=== PATIENT | female | born 1955 | race Caucasian/White ===

== ENCOUNTER → 2018-05-09 17:58 | Outpatient (REF) | payer OTHER, SELFPAY ==
[2018-05-09 20:14] LABS: Cholesterol 206 mg/dL (140-199); HDL Cholesterol 35 mg/dL (40-60); LDL Cholesterol Calculated 105 mg/dL (<100); Triglycerides 328 mg/dL (35-150)
== END ==
LOC: LAB 17:58
PROVIDERS: PCP Family Medicine; Visit Provider Physician Assistant Medical
DX: E78.5 Hyperlipidemia, unspecified (principal)
CPT/HCPCS: 36415; 80061

== ENCOUNTER → 2020-07-09 11:31 | Outpatient (CLI) | payer OTHER, SELFPAY ==
--- NOTE | 2020-07-09 11:36 | DI.CT.S_ITS ---
PROCEDURE: CT UE LT WO CON INDICATIONS: Primary osteoarthritis, left shoulder pain TECHNIQUE: Noncontrast 1-1.5 mm thick sections acquired from the acromioclavicular joint to the inferior scapula, with coronal and sagittal reformatting. COMPARISON: None. FINDINGS: Image quality: Excellent. Bones: No acute fracture identified. Severe glenohumeral degenerative joint disease with near [id number] appearance, subchondral sclerosis and spurring. Presumed small loose body seen adjacent to the coracoid process and image 129/5. Degenerative cystic changes seen at the anterior and posterior aspect of the greater tuberosity. There is a small joint effusion. Soft tissues: Muscles unremarkable. Visualized left lung unremarkable. High-riding appearance of the humeral head suggestive of chronic rotator cuff pathology. Posterior subluxation of the humeral head relative the glenoid suggestive of longstanding posterior labral tear. IMPRESSION: Severe degenerative joint disease as above. Subcentimeter loose body seen in the subscapular recess Dictated by: Basil Winter M.D. on 07/09/2020 at 12:47 Approved by: Basil Winter M.D. on 07/09/2020 at 12:51
== END ==
PROVIDERS: PCP Physician Assistant Medical; Referring Provider Orthopaedic Surgery; Visit Provider Orthopaedic Surgery
DX: M19.012 Primary osteoarthritis, left shoulder (principal); M24.012 Loose body in left shoulder
CPT/HCPCS: 73200

== ENCOUNTER → 2020-09-14 13:12 | Outpatient (CLI) | payer OTHER, SELFPAY ==
[2020-09-14 13:38] LABS: COVID19 -Nasal RAPID Negative (Negative)
== END ==
PROVIDERS: PCP Physician Assistant Medical; Visit Provider Physician Assistant
DX: Z01.812 Encounter for preprocedural laboratory examination (principal)
CPT/HCPCS: 87635

== ENCOUNTER 2020-09-15 06:33 | Day surgery (SDC) | payer OTHER, SELFPAY ==
[2020-09-09 13:58] VITALS: BMI 29.9
[2020-09-15] VITALS (15 sets, daily range): BP systolic 100–128; BP diastolic 48–86; PULSE 74–91; RESP 10–18; TEMP 36.1–36.6; O2SAT 92–99; BMI 29.9
--- NOTE | 2020-09-15 06:00 | DI.RAD.S_ITS ---
PROCEDURE: XR SHOULDER LT 1V INDICATIONS: post op total shoulder TECHNIQUE: 1 views of the shoulder were acquired. COMPARISON: [facility], CR, XR SHOULDER 2+ VIEWS LEFT, 08/28/2019, 10:10. FINDINGS: Bones: Status post left shoulder arthroplasty. No fractures or dislocations. No suspicious bony lesions. Visualized ribs appear intact. Soft tissues: No suspicious soft tissue calcifications. IMPRESSION: Expected postsurgical change for left shoulder arthroplasty. Dictated by: Lidia Blevins MD, PhD on 09/15/2020 at 13:51 Approved by: Lidia Blevins MD, PhD on 09/15/2020 at 13:52
[2020-09-15] MEDS: ACETAMINOPHEN 325 MG TABLET 975 MG PO (07:10)
[2020-09-15] MEDS: PREGABALIN 75 MG CAPSULE PO (07:10)
[2020-09-15] MEDS: CELECOXIB 200 MG CAPSULE PO (07:10)
[2020-09-15] MEDS: LACTATED RINGERS 1,000 ML 42 ML IV (07:20)
--- NOTE | 2020-09-15 07:28 | PM.PREOP ---
Pre-operative Note COVID-19 COVID-19 status: Negative Result date/Date tested (Pos, Neg/Pending): 09/14/20 Interval Note History & Physical reviewed/Exam performed by Physician: Yes Changes to H&P: No
[2020-09-15] MEDS: MIDAZOLAM 2 MG/2 ML VIAL IV (07:35)
--- NOTE | 2020-09-15 07:50 | PM.OP.1 ---
Operative Date/Time/Diagnoses Date of procedure: 09/15/20 Time of procedure: 09:55 Pre-op diagnosis: Left shoulder osteoarthritis Post-op diagnosis: same Procedure & Clinicians Procedure: left total shoulder replacement Same procedure as scheduled: Yes Indications: The patient has had progressively worsening left shoulder pain with radiographic changes consistent with arthritis. Non-operative management has failed and the patient has requested total shoulder replacement. The risks, benefits and alternatives to surgery were discussed with the patient prior to proceeding. Risks discussed included, but were not limited to, failure to relieve pain, stiffness, infection, nerve damage, deep venous thrombosis, pulmonary embolism, stroke, coma, heart attack, permanent paralysis and , as well as the potential need for eventual revision of the prosthetic. Surgeon: Steven Dempsey Putty And Patch Worker: Carlos Joe Click Yes if Unassisted: No Anesthesia Type: General, Peripheral nerve block and Local Operative Notes Findings: Significant osteoarthritis with large inferior humeral osteophyte and moderate biconcave glenoid Closure Type: primary Specimen(s): none sent Prosthetic devices, grafts, tissues, transplants, or devices: Implants used in this procedure were manufactured by the [employer] and included a 50 mm all polyethylene E-plus pegged glenoid, a size 2 canal sparing stem, and a 50 X 18 mm humeral head and neck. The subscapularis was repaired with the [employer] SpeedBridge system. Applied: implant(s) Estimated Blood Loss (mL): 100 Blood products transfused: none Procedure in detail: The patient was seen in the pre-operative area, where the patient identified the left shoulder as the operative site and this was marked with my initials. The patient received pre-operative antibiotics, underwent an interscalene block, and was taken to the operating room and placed on the operative table in the supine position. After satisfactory anesthesia, a manager maritime out was performed. The patient was repositioned in the beach chair position using a dedicated positioner. All pressure points were well padded, and the knees were slightly bent to prevent tension on the sciatic nerves. The left arm was prepared from the fingers to the base of the neck with ChloroPrep in the usual fashion and draped through sterile drapes. An approximately 15 cm incision was created, starting at the clavicle above the coracoid process and extended towards the deltoid insertion. The deltopectoral interval was used to access the shoulder. The cephalic vein was taken laterally. A self retaining retractor was placed. The upper centimeter of the pectoralis major tendon was released. The three sisters were identified and cauterized. The axillary nerve was palpated and protected throughout the case. The biceps was released from its groove and tenodesed over the top of the pectoralis major tendon. The subscapularis was released from the lesser tuberosity with a subscapularis peel and tagged for later repair. The shoulder was dislocated and a cutting guide was used for the proximal humeral osteotomy in 30 degrees of retroversion. The osteophytes were removed to allow centering of the humeral head. The guide pin was drilled with care not to ?plunge? laterally. The central Reamer was used and the trial canal sparing stem was placed using a size 2 which appeared to be the appropriate size. A proximal humeral protector was then applied. We then removed the self-retaining retractor and placed retractors to access the glenoid. The subscapularis was released with a 360 degree release with care being taken to protect the axillary nerve with the inferior portion of this procedure. The remnant of labrum and biceps stump were removed. The appropriate size reamer was chosen with the glenoid sizer, and the guide pin placed. The glenoid was appropriately reamed. The guide for the peripheral holes was used and the center hole enlarged. The trial glenoid was placed with good stability. We then cemented the final implant into place after irrigating the peg holes and drying them with thrombin-soaked Gelfoam. We returned our attention to the humerus, a trial humeral head was applied and a trial reduction performed. Stability was checked with 50% posterior translation with spontaneous reduction, external rotation at the side to 50? with the subscapularis in the repaired position and internal rotation in abduction to 70?. This was felt to be satisfactory and the appropriate implants were opened. The humeral stem prosthetic was impacted into the humerus. The humeral head was applied when the stem was still slightly proud and impacted to both seat the head and fully seat the stem. The joint was relocated one final time. The joint was irrigated and the subscapularis repaired using a double row speed bridge technique. The top of the subscapularis was closed to the leading edge of the supraspinatus with a figure of 8 #2 TiCron to close the rotator interval. The deltopectoral interval was closed with interrupted 0 Vicryl. The subcutaneous layer was closed with 3-0 Vicryl, and the skin with a running 3-0 V-Lock suture and SteriStrips. An Aquacel Ag dressing was applied, the patient's arm was placed in a sling, and the patient was taken to recovery having tolerated the procedure well. Complications: none Post-operative Condition: stable Disposition: PACU Plan for aftercare: The patient will be maintained on a standard total shoulder replacement protocol with passive range of motion limited to 90 degrees forward flexion, 0 degrees external rotation at the side, 0 degrees abduction and internal rotation to the body. The patient will receive aspirin and sequential compression devices for DVT prophylaxis. The patient will be discharged home when safe for the home environment, likely tomorrow.
--- NOTE | 2020-09-15 07:52 | SUR.PREOP ---
0730: Verbal order Dr Freedman for pre-procedure sedation.
--- NOTE | 2020-09-15 07:53 | SUR.PREOP ---
Block start time 0738 . Monitoring initiated and maintained throughout procedure. Oxygen at 2L via nasal cannula and 2mg Versed given by this Rn per anesthesiologist instructions, see EMR. Patient remained stable throughout procedure, no adverse reactions noted. Block end time [0746].
[2020-09-15] MEDS: CEFAZOLIN 1 GM VIAL 2 GM IV (08:04)
--- NOTE | 2020-09-15 08:31 | SUR.OPER ---
Beach chair with Jojo/Amilcar shoulder positioner. Lower body on padded OR bed. Head in foam padded head cradle, secured with straps. Non-operative arm secured <90 degrees abduction. Pillow under knees. Safety belt at thigh. Cloth tape over blanket over lower legs.
[2020-09-15] MEDS: THROMBIN (RECOMBINANT) 5,000 UNIT VIAL 5000 UNIT TOP (08:41)
[2020-09-15] MEDS: TRANEXAMIC ACID 1,000 MG VIAL 1000 MG INJ ×2 (08:41→09:39)
--- NOTE | 2020-09-15 08:55 | P.PCN_ITS ---
Procedures Date/Time Date of procedure: 09/15/20 Time of procedure: 07:40 Nerve Block Time out performed: Yes Local anesthetic used: other (15mL 0.5opivacaine, 5mL 2* idocaine) Location of anesthetic used: interscalene Amount of anesthesia used (mL): 20 Nerve blocks: brachial plexus (interscalene) Procedure successful: Yes Patient tolerated procedure: well Complications: none Additional comments: Brachial plexus nerve block for post operative pain management. Risks and benefits discussed, including bleeding, infection, intravascular injection, nerve damage, block failure. Standard ASA monitors, NC O2. Pt supine. Chloroprep site preparation, sterile technique. Brachial plexus identified with US guidance, traced from supraclavicular to interscalene. 1mL 2% lidocaine skin wheal. 22g x 50mm Pajunk advanced with in-plane US guidance to brachial plexus. Negative aspiration. LA injected with intermittent negative aspiration. Good LA spread noted on US. No pain, no paraesthesia. Pt tolerated procedure well. Vital signs stable.
[2020-09-15] MEDS: OXYCODONE IR 5 MG TABLET PO (10:07)
--- NOTE | 2020-09-15 10:24 | PC.NURSE ---
Day shift: Pt on AC unit at approx 1030 from PACU. She is A&Ox4. Reports left shoulder pain of 6/10. She did get pain med in PACU. Oriented to room and call light. CMS WNL and radial pulse present. Can move left and and automotive sales representative strength present. Agrees to not get OOB w/o help from staff. Bed alarm on. Tolerating ice water. Encouraged to eat and drink slowly today. VS WNL. RA 93%. Instructed on I.S. use. Will continue with post-op plan of care.
[2020-09-15] MEDS: LACTATED RINGERS 1,000 ML 100 ML IV (11:18)
[2020-09-15] MEDS: IBUPROFEN 400 MG TABLET PO ×3 (12:16→22:04)
[2020-09-15] MEDS: NICOTINE 2 MG 1 EACH PO ×5 (13:13→22:06)
[2020-09-15] MEDS: OXYCODONE IR 10 MG TABLET PO ×3 (13:33→22:03)
--- NOTE | 2020-09-15 13:44 | PC.NURSE ---
Day shift: Pt OOB x2 to void. Ambulating well and steady on feet. 2nd time to the BR increased shoulder pain reported. Medicated per MAY. Pt had no nausea after lunch. Dressing remains CDI and arm in sling. IV fluids per MAY. SCD's tolerated and using I.S. as directed. Pt wants to take a nap now. Door closed. Bed alarm is on for safety. Call light in reach.
--- NOTE | 2020-09-15 14:48 | PC.NURSE ---
Day shift: Pt awake now (1450) and did not want the 1500 dose of Tylenol. OOB and ambulating w/ PT. Pain well controlled per MAY.
--- NOTE | 2020-09-15 15:08 | PT.IIE ---
Current Diagnoses Primary osteoarthritis, left shoulder (09/15/20) Surgery Performed Operation Date: 09/15/20 07:45 Actual Procedures p Total Shoulder Arthroplasty(Left) - Steven Dempsey MD Medical History (Last Updated 09/09/20 @ 14:15 by Ginger Mendez RN) Current every day smoker Easy bruisability Frequent UTI History of prosthetic unicompartmental arthroplasty of left knee Hyperlipidemia Osteoarthritis Physical Therapy Inpatient Evaluation/Re-Eval M1 PT/OT-IP Prior Functional Status Start: 09/15/20 16:57 Freq: NEEDED Status: Active Protocol: Document 09/15/20 15:08 DLM (Rec: 09/15/20 17:09 DL [id number]) Medical Review Prior Functional Status Medical History Reviewed Yes Diet/Fluid Consistency Regular Communication WNL Mobility and Gait Independent without device, active Activities of Daily Living and IADL's Independent Social History Household Members friend(s),none Living Arrangements Mobile home Number of Floors (Floors) One Floor Number of Stairs To Enter/Railing? 3 without rail, has another way into house without steps Home Environment Tub/Shower M2 PT-IP Current Condition Start: 09/15/20 16:57 Freq: NEEDED Status: Active Protocol: Document 09/15/20 15:08 DLM (Rec: 09/15/20 17:09 DL [id number]) Physical Therapy Current Condition Current Condition Evaluation Date 09/15/20 Treatment Diagnosis left total shoulder arthroplasty, mobility impairment Onset Date 09/15/20 Precautions Shoulder Precautions Sling,PROM,Internal Rotation to Body,No External Rotation, No Abduction,Forward Flexion to 90 degrees Other Precautions sling in place left shoulder, NWB left UE Weight Bearing Status Weight Bearing Status Non-Weight Bearing M3 PT-IP Subjective Start: 09/15/20 16:57 Freq: NEEDED Status: Active Protocol: Document 09/15/20 15:08 DLM (Rec: 09/15/20 17:09 DL [id number]) Subjective Physical Therapy Visit Type Type Initial Evaluation Visit Start Time 14:30 Visit Stop Time 15:08 Total Visit Minutes 38 Number of CUSTOM CAR BUILDER Visits 0 Physical Therapy Visit Comments Patient Comments Her arm is numb with some tingling in her hand, no pain Patient Goals Discharge home Therapy Pain Assessment Pain When Pain Assessed After Treatment Pain Present Pain Present Denied Pain M4 PT-IP Mobility and Gait Start: 09/15/20 16:57 Freq: NEEDED Status: Active Protocol: Document 09/15/20 15:08 DL (Rec: 09/15/20 17:09 [facility] [id number]) PT-Bed Mobility Assessment Rolling Type of Rolling Roll to Right Level of Assist Independent Supine to Sit Supine to Sit Standby Assistance Sit to Supine Sit to Supine Standby Assistance Scooting Scooting to Edge of Bed Independent PT-Transfer Assessment Sit to and From Stand Sit to and from Stand Standby Assistance,Use of Upper Extremities Equipment Transfer Assistive Device Gait Belt Transfers Transfer Destination Chair Transfer Technique Stand Step Pivot Transfer Ability Level of Assist Standby Assistance,Contact Guard Assistance,Use of Upper Extremities Comments Mobility Comments Pt up to recliner this visit, needs close and pt instructed to have nursing help back to bed Gait Assessment Gait Gait Assistance Required: Contact Guard Assist Distance (Feet) 220 Able to Maintain Weight Bearing Status Yes During Gait Assistive Devices Assistive Device None,Gait Belt Gait Deviations General Gait Pattern Within Normal Limits Comments Gait Comments one lateral loss of balance to left when turning corner, needed assist to recover Stair Climbing Assessment Comments Stair Climbing Comments she plans to avoid stair at home since does not have rails to hold PT-Balance Assessment Sitting Balance and Reactions Static Sitting Balance Ability Good Dynamic Sitting Balance Ability Good Standing Balance and Reactions Static Standing Balance Ability Good Dynamic Standing Balance Ability Fair M5 PT-IP Objective Assessments Start: 09/15/20 16:57 Freq: NEEDED Status: Active Protocol: Document 09/15/20 15:08 DL (Rec: 09/15/20 17:09 [facility] [id number]) Orientation Orientation/Cognition Level of Alertness Alert Orientation Name,Age,Birthday,Month,Date, Year,Day of Week,Place, Situation Language Function Ability No Deficits Noted Safety Awareness Understands Safety Issues Memory Description No Deficits Noted Gross Range of Motion Upper Extremity ROM Assessment Left Impaired Impairments shoulder in sling post-op, elbow/wrist/hand moving well, post-op restrictions left shoulder motion Lower Extremity ROM Assessment Within Functional Limits Strength Upper Extremity Strength Assessment Left Impaired Shoulder no functional use post-op Elbow flexion 2+/5 Wrist moving actively Hand moving actively Lower Extremity Strength Assessment Within Functional Limits Coordination Assessment Gross Coordination Gross Coordination WNL Sensation Assessment Comments Sensation Comments pt had block that is still affecting left UE, mostly numb with some tingling in left hand Muscle Tone Muscle Tone WNL Yes M6 PT-IP Treatment Start: 09/15/20 16:57 Freq: NEEDED Status: Active Protocol: Document 09/15/20 15:08 DLM (Rec: 09/15/20 17:09 DL [id number]) Physical Therapy Treatment Education Education Provided Precautions,Post-Op Packet, Safety M7 PT-IP Assessment and Plan Start: 09/15/20 16:57 Freq: NEEDED Status: Active Protocol: Document 09/15/20 15:08 DLM (Rec: 09/15/20 17:09 DL [id number]) PT Summary Assessment and Plan Potential Rehabilitation Potential Excellent Status of Condition at Evaluation Evolving Summary Impairments Pain,ROM,Strength,Balance,Bed Mobility,Transfers,Gait, Activity Tolerance Assessment Summary Akilah is alert and resting in bed. She continues to have numbness in left UE post-op. Educated her in post-op restrictions and fall prevention. She tolerated gait in the cool well with one loss of balance to the left and needed assist for recovery . She is up to recliner. Ice on incisional area. She plans to discharge home with help from friends. Anticipate she will be ready for discharge home tomorrow if she continues to progress well. Goals Bed Mobility Goal Independent Transfer Goal Independent Gait Goal Independent Gait Distance 200 feet Days to Meet Goals 2 Frequency of Treatment Frequency Of Treatment Twice a Day Treatment Plan Physical Therapy Treatment Plan Bed Mobility Training,Transfer Training,Gait Training, Therapeutic Exercise,Balance Retraining,Post Op Education, Discharge Planning,Hot or Cold Pack Recommendations To Nursing Amount of Assist Needed Standby Assistance Discharge Recommendations PT Discharge Recommendations Home with Assistance, Outpatient PT Other Discharge Recommendations Her roommate and friend are going to be helping her, she has out-pt PT scheduled Transportation Needs at Discharge Private Vehicle
[2020-09-15] MEDS: FENOFIBRATE, MICRONIZED 67 MG CAPSULE 201 MG PO (20:12)
[2020-09-15] MEDS: ASPIRIN EC 81 MG TABLET PO (20:13)
[2020-09-15] MEDS: DOCUSATE 100 MG CAPSULE PO (20:14)
[2020-09-15] MEDS: ACETAMINOPHEN 325 MG TABLET 650 MG PO (20:14)
[2020-09-16] MEDS: OXYCODONE IR 10 MG TABLET PO ×3 (01:23→08:05)
[2020-09-16] MEDS: NICOTINE 2 MG 1 EACH PO (01:23)
[2020-09-16] MEDS: IBUPROFEN 400 MG TABLET PO ×3 (01:23→08:04)
[2020-09-16 03:00] VITALS: BP 140/83; PULSE 68; RESP 18; TEMP 36.2; O2SAT 93
[2020-09-16] MEDS: HYDROMORPHONE 2 MG TABLET PO (03:00)
[2020-09-16 06:04] LABS: Hematocrit 41.3 % (36-46); Hemoglobin 13.5 g/dL (12.0-16.0)
[2020-09-16 07:00] VITALS: BP 138/82; PULSE 67; RESP 16; TEMP 36.4; O2SAT 97
--- NOTE | 2020-09-16 07:26 | PM.DS.1 ---
History of Present Illness History of Present Illness Date Patient Seen: 09/16/20 Time Patient Seen: 07:26 Chief complaint: Left Total Shoulder Arthroplasty *OPB* Narrative: The history and physical is contained in the chart in a previously completed note. Please refer to that note for this information. Discharge Providers Provider Discharge Date: 09/16/20 Primary care physician: Rihna Shaw PA-C Consults: 09/15/20 10:37 Consult to Discharge Planning Routine Comment: Consult to Physical Therapy Evaluate & Treat Comment: Physician Instructions: pendulums, 90 FF, 0 Abd, 0 ER, IR to body Consult to Respiratory Therapy Evaluate & Treat Comment: Physician Instructions: Evaluate and treat Discharge provider: Steven Dempsey MD Summary Hospital Course Discharge Diagnosis: Left shoulder osteoarthritis Hospital Course: The patient was admitted to the hospital and taken directly to the operating room on September 15, 2020. She underwent a left total shoulder replacement with no complications. On postoperative day 1 she had mild discomfort but was ready for discharge home. Status at Discharge Cognitive/behavioral status at discharge: at baseline, oriented Functional status at discharge: independent ambulation Overall status at discharge: patient is progressing back to baseline Time Spent with Patient Time spent: Less than 30 minutes Exam Vital Signs (past 8 hours): - 09/16/20 03:00 Temperature 97.1 F L Pulse Rate 68 Respiratory Rate 18 Blood Pressure 140/83 Pulse Oximetry 93 Oxygen Delivery Method Room Air Oxygen Flow Rate 0 Narrative Exam Narrative: The left shoulder wound is dressed with minimal drainage on the bandage. Light touch is intact in the radial, ulnar, median, musculocutaneous and axillary nerve distribution. She can extend her thumb, abduct her thumb, abduct her fingers and can fire her biceps and deltoid. Objective Labs Result Diagrams: 09/16/20 05:46 Labs: Laboratory Results - last 24 hr 09/16/20 05:46 Hgb 13.5 Hct 41.3 PFSH Medical History (Updated 09/09/20 @ 14:15 by Ginger Mendez RN) Current every day smoker Easy bruisability Frequent UTI History of prosthetic unicompartmental arthroplasty of left knee Hyperlipidemia Osteoarthritis Surgical History (Updated 09/09/20 @ 14:20 by Ginger Mendez RN) History of esophagogastroduodenoscopy (EGD) History of prosthetic unicompartmental arthroplasty of right knee Social History household members: friend(s) and none Smoking Status: Current every day smoker alcohol intake: current Discharge Assessment & Plan Assessment and Plan Assessment: Stable postoperative day 1 status post left total shoulder replacement. Plan of Treatment: Discharge today with follow-up in 2 weeks in my office. Prescriptions for oxycodone and Vistaril have been provided. She has been instructed in the use of Tylenol and ibuprofen for pain relief. Continue aspirin twice a day for DVT prophylaxis. Discharge Plan Discharge Plan Patient Disposition: Home Discharge orders & Medications Discharge Orders: Discharge (Order); Ordered 09/16/20 Ordered By: Steven Dempsey Prescriptions: New acetaminophen 325 mg Tablet 650 mg PO TID 30 Days Qty: 180 RF: 0 ibuprofen 400 mg Tablet 400 mg PO Q4HR 30 Days RF: 0 hydroxyzine pamoate 25 mg Capsule 25 mg PO Q6HR PRN (Reason: Nausea) Qty: 30 RF: 0 oxycodone 5 mg Tablet 5 mg PO Q4H PRN (Reason: Pain, Moderate (4-6)) Qty: 40 RF: 0 Continued multivitamin Tablet 1 tab PO DAILY Qty: 0 RF: 0 omega-3 fatty acids 500 mg Capsule 500 mg PO BID Qty: 0 RF: 0 coQ10 (ubiquinol) 200 mg Capsule 200 mg PO DAILY Qty: 0 RF: 0 estradiol-norethindrone acet 0.5-0.1 mg tablet 1 tab PO DAILY Qty: 84 RF: 0 fenofibrate 160 mg Tablet 160 mg PO BEDTIME RF: 0 nicotine (polacrilex) 2 mg Lozenge 2 mg BUCCAL Q2-4H PRN (Reason: Smoking Cessation) RF: 0 fluticasone propionate 50 mcg/actuation [place],Suspension 1 spray INTRANASAL DAILY RF: 0 Discontinued hydrocodone-acetaminophen 5-325 mg Tablet 1 tab PO Q4-6H PRN (Reason: Pain) RF: 0 Follow up/Referrals: Rhina Shaw PA-C [Primary Care Provider] - Steven Dempsey MD [Physician] - 2 Weeks Diet/Activity/Treatments Diet: Diet as Tolerated and Regular Activity: You may use your left arm in front of your body below shoulder level. You may lift 1-2 lb with your left hand. Cold/Heat Therapy: You may apply ice to the left shoulder for 15 minutes every hour as needed for pain control. Skin/Wound/Dressing Care Report to your healthcare provider any signs of infection, such as:: chills, fever, night sweats, increased pain, unusual drainage and unusual redness Dressing: Leave the dressing in place until your follow-up. You may shower with the dressing in place. If the central strip of the dressing becomes saturated with either water or blood, please call the office to have it evaluated. Visit Report/Discharge Packet Instructions: DI for Shoulder Replacement Stand Alone Forms: Surgery Discharge Discharge Data Primary Care Provider: Rhina Shaw Attending Provider: Steven Dempsey
[2020-09-16] MEDS: DOCUSATE 100 MG CAPSULE PO (08:04)
[2020-09-16] MEDS: ASPIRIN EC 81 MG TABLET PO (08:05)
--- NOTE | 2020-09-16 09:27 | PC.NURSE ---
Day shift: Pt left unit via WC. Going home to [facility]. Her friend is driving her. Paperwork signed and all questions answered. scripts sent electronic to Pt's pharmacy. Pt has all personal belongings. Corinne remains CDI. CMS intact w/ good cap refill. Pain controlled well per MAR. Encouraged Pt to stop smoking and informed her about the increased risk of blood clots. Pt stated I'm very happy to be going home today.
--- NOTE | 2020-09-16 16:51 | CM.DANOTE ---
Addendum entered by Trent Barnhart 09/16/20 16:54: Patient with no identified D/C planning needs. Discharge Planning/Care Management CM Discharge Assessment Start: 09/16/20 11:50 Freq: Status: Active Protocol: Document 09/16/20 11:51 AL (Rec: 09/16/20 11:52 AL [id number]) Discharge Planning Assessment Assigned Install Technician ALVARO Myrick Student Contact Information Marianna Forman, friend Advance Directives? No History Provided By Medical Record Has Patient been admitted in last 30 No days? Prior Living Arrangements Mobile home Household Members friend(s),none Barriers to Discharge No Whiteboard Updated in Patient Room with No name and ext. # of Install Technician Pre-Anesthesia Assessment Start: 09/09/20 13:58 Freq: Status: Discharge Protocol: Document 09/09/20 13:58 CAB (Rec: 09/09/20 14:37 CAB [id number]) Pre-Anesthesia Assessment Preferred Name Akilah Patient Information Reviewed Via Phone Assessment Assessment Completed With Patient Comment Labs/EKG done @ [place], surgeon has, not here, COVID screen @ 09/14/20 Primary Care Provider Rhina Shaw Seen Specialist in Last 12 Months Yes Specialist Seen Orthopedist Primary Language Latvian Check Cashier Required No Height 170.18 cm Weight 86.636 kg Body Mass Index (BMI) 29.9 Hearing Ability Normal Visual Assist Glasses Dentition Type Partial- Upper Barriers to Learning None Hx Anesthesia Reactions Yes: PONV Hx Family Anesthesia Reaction No Hx Malignant Hyperthermia No Hx Blood Transfusions No Anesthesia Review Requested No alcohol intake current alcohol intake frequency a few times a week Smoking Status Current every day smoker Tobacco type cigarettes Smoking packs per day 1 Substance Use Type does not use Pain Present Pain Reported Musculoskeletal Symptoms Joint Pain,Limited Range of Motion History of Falling (Recent or History of No ) Patient is completely paralyzed or No completely immobile Mental Status Oriented to own ability Is patient on oxygen? No Does patient have PERKINS/SOB No Hx Sleep Apnea No Currently Taking a Beta Kita No Can You Climb a Flight of Stairs Without Yes SOB Hx Chest Pain No Hx SOB No Hx Syncope or Dizziness No Anti-Coagulant Therapy No Has a Dairy Husbandry Teacher No Cardiac Testing No Hx Pacemaker/ICD No Pacemaker Rep Required? No Cardiac Clearance Received Not Applicable Diet Type At Home Paleo dysphagia No Bladder Pattern Frequency Urinary Catheter Present No Hx Urinary Self Catheterization No Diabetes No Patient No Lactating No Hx Drug Resistant Organism No Presence of External or Internal Medical Yes: Calos knees Devices Have you had any close contact with No someone diagnosed with COVID-19? Marital Status Single Lives With friend(s),none Prior Living Arrangements Mobile home Support System Friend(s) Does the Patient Have Assistance After Yes Surgery Patient Discharge Plan Description Return Home Comment Pt advised 1 night length of stay per surgeon Additional comment Pt lives on [place] Feels Safe in Current Environment Yes Been Physically Hurt or Threatened By a No Person in Current Environment Do you have thoughts of harming yourself None or others? Are you currently considering suicide? No Do you have a plan to hurt yourself or No Plan others? Do You Have Any Spiritual Beliefs That No May Affect Your HC Choices? Do You Have Any Cultural Practices That No May Affect Your HC Choices? Comment Samuel Who Can We Speak to About Patient's Care Family, friends Identifying Code for Release of Patient Declines to issue Information Health Care Proxy/Next of Kin Marianna (good friend) Health Care Proxy Emergency Contact Name aMrianna (good friend) Emergency Contact Advance Directives? No Power of Math Instructor No PAC Instructions Do not shave/clip surgical site,Durable medical equipment ,Medications to take/avoid, Nasal antibiotic,No ETOH/ petroleum product on skin DOS, NPO,Post-op transportation,Pre -surgical wash,Sturdy shoes/ comfortable clothes,Do not bring valuables and remove jewelry Original Note: DCP ASSESSMENT: Patient was D/C prior to being able to meet with her. Per nursing and chart review patient D/C with friend providing transportation and outpatient physical therapy. ALVARO Javier MSW Student
== END 2020-09-16 09:30 | disposition home or self-care (01) ==
LOC: OR 06:34 → AC 06:36
PROVIDERS: PCP Physician Assistant Medical; Referring Provider Orthopaedic Surgery; Visit Provider Orthopaedic Surgery
PROC: (CPT 23472; principal; 2020-09-15 07:45)
DX: M19.012 Primary osteoarthritis, left shoulder (principal); M25.712 Osteophyte, left shoulder; F17.210 Nicotine dependence, cigarettes, uncomplicated; E78.5 Hyperlipidemia, unspecified
CPT/HCPCS: 23472; 36415; 64415; 73020; 85014; 85018; 97162; C1776; J0690; J1100; J1170; J2250; J2405; J2704; J3010

== ENCOUNTER → 2024-06-11 08:36 | Outpatient (CLI) | payer MEDICARE, OTHER, SELFPAY ==
[2020-09-15 11:18] VITALS: BMI 29.9
--- NOTE | 2024-06-11 08:40 | DI.MRI.S_ITS ---
PROCEDURE: MR ANKLE LT WO CON INDICATIONS: MASS OF LT ANKLE/GANGLION CYST TECHNIQUE: Noncontrast sagittal T1 spin echo and T2 fast spin echo with fat saturation, axial proton density fast spin echo and T2 fast spin echo with fat saturation, coronal T1 spin echo and T2 fast spin echo with fat saturation through the ankle/hindfoot. COMPARISON: [facility] [place], [place], XR FOOT 3 VIEWS WEIGHT BEARING BILATERAL, 05/21/2024, 8:32. FINDINGS: Image quality: Excellent. Bones and joints: Fiducial marker is placed over dorsal and medial aspect of midfoot at the level of navicular cuneiform joint. Midfoot and hindfoot joint osteoarthritic changes are seen with joint space narrowing, subchondral sclerosis and subcortical cystic changes more notably involving navicular cuneiform joint, 1st through 3rd TMT joints. Mild marrow edema involving medial cuneiform and upper portion of distal calcaneus adjacent to calcaneocuboid joint without discrete fracture line likely represent changes secondary to osteoarthritis versus contusion. of No fracture or dislocation. No osteochondral injuries of the talar dome. Small tibiotalar joint effusion, no loose bodies. Medial structures: The posterior tibialis tendon is thickened with small amount of fluid distending tendon sheath at the level of mid to distal talus and talonavicular joint. The flexor digitorum longus, and flexor hallucis longus tendons are intact. The posterior tibial neurovascular bundle appears normal within the tarsal tunnel, without extrinsic mass effect. The deltoid ligament and spring ligament are thickened with intrasubstance T2 hyperintense signals. Lateral structures: The anterior talofibular ligament appears attenuated with intrasubstance T2 hyperintense signal. The calcaneofibular, and posterior talofibular ligaments appear intact. More superiorly, the anterior and posterior tibiofibular ligaments appear intact, as is the intermalleolar ligament. The tibiofibular syndesmosis is normal in width at 2 mm or less. The peroneus longus and brevis tendons are thickened with subtle intrasubstance T2 hyperintense signal at the level of distal calcaneus and cuboid. The sinus tarsi demonstrates normal fatty signal, without edema, fibrosis, or cyst formation. Anterior structures: The tibialis anterior, extensor hallucis longus, and extensor digitorum longus tendons appear intact. The dorsal talonavicular ligament appears intact. Posterior and plantar structures: Achilles tendon appears thickened with intrasubstance T2 hyperintense signal extending to its posterior calcaneal insertion. Medial and lateral bands of the plantar fascia are of normal thickness. No abductor digiti quinti muscle atrophy to suggest Rodney neuropathy. IMPRESSION: 1. [id number] midfoot and hindfoot joint osteoarthritic changes as above. No acute fracture or dislocation. Finding is more notably involving calcaneocuboid joint and navicular cuneiform joints as well as 1st through 3rd TMT joints. No gross osteochondral injuries of talar dome. Small joint effusion, no loose bodies. 2. Low-grade tenosynovitis involving posterior tibialis tendon at the level of distal talus and talonavicular joint. 3. Low to moderate grade sprain/intrasubstance partial-thickness tear involving deltoid ligament and SPRING LIGAMENT. Low to moderate grade intrasubstance partial-thickness tear involving anterior talofibular ligament. No full-thickness ankle ligament rupture. 4. Mild tendinosis involving peroneus brevis and longus tendon at the level of distal calcaneus extending to the level of cuboid. 5. Low-grade intrasubstance partial-thickness tear involving Achilles tendon extending to its posterior calcaneal insertion. No Achilles tendon rupture. 6. No discrete soft tissue mass or drainable fluid collection is seen over dorsal and medial aspect of navicular cuneiform joint at the site of the fiducial marker. No ganglion cyst is seen. Dictated by: Luis E Lockwood M.D. on 06/11/2024 at 14:57 Approved by: Luis E Lockwood M.D. on 06/11/2024 at 15:20
== END ==
PROVIDERS: PCP Physician Assistant; Referring Provider Orthopaedic Surgery Foot and Ankle Surgery; Visit Provider Orthopaedic Surgery Foot and Ankle Surgery
DX: S86.012A Strain of left Achilles tendon, initial encounter (principal); R22.42 Localized swelling, mass and lump, left lower limb; M65.972 Unspecified synovitis and tenosynovitis, left ankle and foot; S93.422A Sprain of deltoid ligament of left ankle, initial encounter; S93.492A Sprain of other ligament of left ankle, initial encounter
CPT/HCPCS: 73721

== ENCOUNTER → 2024-09-17 09:31 | Outpatient (CLI) | payer MEDICARE, OTHER, SELFPAY ==
[2020-09-15 11:18] VITALS: BMI 29.9
--- NOTE | 2024-09-17 09:34 | DI.CT.S_ITS ---
PROCEDURE: CT LE LT W CON INDICATIONS: PAIN IN LEFT THIGH TECHNIQUE: Noncontrast 3 mm axial sections acquired of the left femur, with coronal and sagittal reformats. For radiation dose reduction, the following was used: automated exposure control, adjustment of mA and/or kV according to patient size. COMPARISON: [facility] [place], CR, XR KNEE 4+ VIEWS LEFT, 09/29/2021, 9:17. FINDINGS: Image quality: Excellent. Bones: No acute osseous fracture or dislocation. Postsurgical changes from left medial unicompartmental arthroplasty in the knee. Hardware components are in expected positions without signs of loosening. At least moderate degenerative changes in the lateral and anterior compartments. Moderate degenerative changes in the left hip with joint space narrowing, subchondral sclerosis, marginal osteophyte formation. No aggressive osseous lesion. Soft tissues: Small moderate left knee effusion. No hip effusion. The thigh musculature is age-appropriate in bulk. The articular cartilages, ligaments, tendons are not well evaluated with CT. No solid mass is identified in the thigh. Included pelvic soft tissues demonstrate no acute abnormality. No soft tissue edema or hematoma. IMPRESSION: 1. Postsurgical changes from medial unicompartmental arthroplasty. No acute hardware complication or acute osseous abnormality is seen. 2. At least moderate osteoarthrosis in the lateral and anterior compartments of the knee. Moderate knee effusion. 3. Moderate left hip osteoarthrosis. Approved by: Jim Paulino M.D. on 09/17/2024 at 20:28
== END ==
PROVIDERS: PCP Physician Assistant; Referring Provider Physician Assistant; Visit Provider Physician Assistant
DX: M16.12 Unilateral primary osteoarthritis, left hip (principal); M17.12 Unilateral primary osteoarthritis, left knee; M79.652 Pain in left thigh; M25.462 Effusion, left knee; Z96.652 Presence of left artificial knee joint
CPT/HCPCS: 73700